=== PATIENT | female | born 1995 | race Caucasian/White ===

== ENCOUNTER 2017-07-07 13:46 | Emergency (ER) | payer OTHER ==
[2017-07-07] MEDS ORDERED: diPHENhydraMINE IV* 50 MG/ML 1 ml VIAL (BENADRYL) IV ONE (16:58)
[2017-07-07] MEDS ORDERED: Metoclopramide IV* 5 MG/ML 2 ML VIAL IV ONE (16:58)
[2017-07-07] MEDS ORDERED: Ketorolac INJ* 30 MG/ML 1 ML VIAL IV PUSH ONE ×2 (16:58→19:10)
[2017-07-07] MEDS ORDERED: NS 0.9% 1000 ML* 1,000 ML IV ONE (16:58)
--- NOTE | 2017-07-07 18:10 | ED ---
Headache - HPI Summary HPI Summary: Patient here with headache since Monday. She reports this as a generalized sharp stabbing headache that comes and goes however has been persistent over the course of the week. She has a history of headaches and this feels similar in quality however is more intense and lasting longer than usual. She typically is able to relieve her headaches with medications prescribed by Dr. Mcarthur who she follows with locally. These medications unfortunately are not relieving her headache this time through. She reports her headaches started 2 [place]. She is unaware of her triggers. She admits that migraine cocktails typically help and is hoping to get relief with something along these lines today. She has mild photosensitivity, photophobia. Denies nausea, vomiting, neck pain or stiffness, numbness, tingling, weakness. No head injuries to report. No URI symptoms or other illness to report. - History Of Current Complaint Chief Complaint: EDHeadache Stated Complaint: HEADACHE Time Seen by Provider: 07/07/17 15:52 Hx Obtained From: Patient - Allergies/Home Medications Allergies/Adverse Reactions: Allergies Allergy/AdvReac Type Severity Reaction Status Date / Time amoxicillin Allergy Hives Verified 07/07/17 16:12 bupropion [From Wellbutrin] Allergy Hives Verified 07/07/17 16:12 metoclopramide [From Reglan] Allergy Hives Verified 07/07/17 16:12 midodrine Allergy Hives Verified 07/07/17 16:12 PMH/Surg Hx/FS Hx/Imm Hx Previously Healthy: Yes Endocrine/Hematology History: Denies: Hx Anticoagulant Therapy, Hx Blood Disorders, Hx Diabetes, Hx Thyroid Disease, Hx Anemia Cardiovascular History: Denies: Hx Hypertension, Hx Pacemaker/ICD History: Denies: Hx Renal Disease Sensory History: Denies: Hx Hearing Aid Neurological History: Reports: Hx Headaches - followed by [facility] in [place] when home (student) Psychiatric History: Denies: Hx Panic Disorder - Surgical History Surgery Procedure, Year, and Place: [facility] Infectious Disease History: No Infectious Disease History: Denies: Traveled Outside the [place] in Last 30 Days - Family History Known Family History: Positive: None - Social History Occupation: Student Lives: Dormitory/Roommates Alcohol Use: Occasionally Hx Substance Use: No Substance Use Type: Reports: None Hx Tobacco Use: No Smoking Status (MU): Never Smoked Tobacco Review of Systems Constitutional: Negative Negative: Fever, Chills, Fatigue Positive: Photophobia - mild. Negative: Blurred Vision, Diplopia - no aura, Drainage, Erythema ENT: Negative Negative: Epistaxis, Dental Pain, Sore Throat, Ear Ache, Nasal Discharge Cardiovascular: Negative Negative: Palpitations, Chest Pain Respiratory: Negative Negative: Shortness Of Breath, Cough Gastrointestinal: Negative Negative: Abdominal Pain, Vomiting, Diarrhea, Nausea Positive: no symptoms reported Musculoskeletal: Negative Skin: Negative Positive: Headache. Negative: Weakness, Paresthesia, Numbness, Syncope, Slurred Speech Psychological: Normal All Other Systems Reviewed And Are Negative: Yes Physical Exam Triage Information Reviewed: Yes Vital Signs On Initial Exam: Initial Vitals Temp Pulse Resp BP Pulse Ox 98.5 F 120 18 124/80 96 07/07/17 13:49 07/07/17 13:49 07/07/17 13:49 07/07/17 13:49 07/07/17 13:49 Vital Signs Reviewed: Yes Appearance: Positive: Well-Appearing, Well-Nourished, Pain Distress - lights are out upon entrance to room - she is wearing a knit hat and appears mostly comfortable on stretcher Skin: Positive: Warm, Skin Color Reflects Adequate Perfusion, Dry - no facial lesions/erythema/edema Head/Face: Positive: Normal Head/Face Inspection - NTTP Eyes: Positive: Normal, EOMI, DAVID, Conjunctiva Clear. Negative: Conjunctiva Inflammed, Discharge ENT: Positive: Normal ENT inspection, Hearing grossly normal, Pharynx normal, TMs normal. Negative: Nasal congestion Dental: Negative: Dental Fracture @, Abscess @ Neck: Positive: Supple, Nontender, No Lymphadenopathy Respiratory/Lung Sounds: Positive: Clear to Auscultation, Breath Sounds Present Cardiovascular: Positive: Normal, RRR, S1, S2 Abdomen Description: Positive: Nontender, No Organomegaly, Soft Bowel Sounds: Positive: Present Musculoskeletal: Positive: Normal, Strength/ROM Intact Neurological: Positive: Normal, Sensory/Motor Intact, Alert, Oriented to Person Place, Time, CN Intact II-III, Facial Symmetry, Speech Normal Psychiatric: Positive: Normal Diagnostics - Vital Signs Vital Signs Temp Pulse Resp BP Pulse Ox 07/07/17 13:49 98.5 F 120 18 124/80 96 - Laboratory Lab Statement: Any lab studies that have been ordered have been reviewed, and results considered in the medical decision making process. Headache Course/Dx - Course Course Of Treatment: Pt presents with headache similar to those that she's had in the past. Today is different in that it's more intense and lasting longer than usual despite her typical remedy regimen. Implemented migraine cocktail which she reports typically helps. Pending response to therapy. Signed out to Shireen Presley PA-C in stable condition. - Diagnoses Provider Diagnoses: Headache Discharge - Sign-Out/Discharge Documenting (check all that apply): Sign-Out Patient Signing out patient TO: Shireen Romeo - Discharge Plan Condition: Stable [facility] - - Billing Disposition and Condition Condition: STABLE
[2017-07-07] MEDS ORDERED: PROCHLORPERAZINE INJ 5 MG/ML 2 ML VIAL IV ONE (18:16)
[2017-07-07] MEDS ORDERED: Butalb/Acetamin/Caff TAB* 1 TAB PO ONE (19:56)
--- NOTE | 2017-07-07 20:05 | PN ---
Progress Note - Progress Note Date of Service: 07/07/17 Note: Signed out by Catarina Rae PA-C Migraine cocktail given in ED course of treatment. After awaiting 1 hour, patient was rechecked with no improvement of symptoms. Discussed treatment options with her and she agrees to fiorcet. Fioricet with relief of pain. Evaluated patient one hour after Fioricet given and she states she is feeling improved to a 1 out of 10 pain from a 9 out of 10 pain. She is requesting to go home She will follow-up with Dr. Mcarthur States she has her at home medications and does not need refills at this time Vital signs are stable upon discharge
[2017-07-07 21:23] VITALS: BP 112/62
== END 2017-07-07 21:22 | disposition home or self-care (01) ==
LOC: ED 13:46
DX: R51 Headache (principal); Z88.0 Allergy status to penicillin; Z88.8 Allergy status to other drugs, medicaments and biological substances
CPT/HCPCS: 96374; 96375; 99283; A9270-GY; J0780; J1200; J1885